=== PATIENT | female | born 1995 | race Two or more races ===

== ENCOUNTER 2024-11-04 14:02 | Emergency (ER) | payer SELFPAY ==
[~2024-11-04] VITALS: Ht 157.5 cm; Wt 60.0 kg
[2024-11-04 14:09] VITALS: O2SAT 100
[2024-11-04 14:54] LABS: BASOPHILS % 0.6 % (0.0-2.0); EOSINOPHILS % 4.0 % (0.0-5.0); HEMATOCRIT. 35.6 % (36.0-48.0); HEMOGLOBIN. 12.1 g/dL (12.0-16.0); LYMPHOCYTES % 28.2 % (20.0-50.0); MEAN PLATELET VOLUME 8.0 fl (7.4-10.4); MONOCYTES % 8.2 % (2.0-8.0); NEUTROPHILS % 59.0 % (40.0-76.0); PLATELET 258 x1000/uL (130-400); RED BLOOD CELL COUNT 3.99 mill/uL (4.2-5.4); RED CELL DISTRIBUTION WIDTH 13.2 % (11.6-14.6)
[2024-11-04] MEDS: ONDANSETRON HCL 4MG/2ML INJ IV ONE (15:03)
[2024-11-04] MEDS: SODIUM CHLORIDE 0.9% 1,000 ML IV ONE (15:06)
[2024-11-04 15:10] LABS: CREATININE 0.6 mg/dL (0.6-1.0); UREA NITROGEN BLOOD < 5 mg/dL (9-23)
[2024-11-04] MEDS: ACETAMINOPHEN 500MG TABLET PO ONE (15:11)
[2024-11-04] MEDS: KETOROLAC 15MG/ML VIAL IV ONE (15:11)
[2024-11-04 15:12] LABS: ASPARTATE AMINOTRANSFERASE 15 IU/L (<34); BILIRUBIN DIRECT 0.2 mg/dL (<=3.0); BILIRUBIN TOTAL 0.5 mg/dL (0.1-1.0)
[2024-11-04 15:13] LABS: PROTEIN TOTAL 6.8 g/dL (6.0-8.3)
[2024-11-04] MEDS: FAMOTIDINE 20MG/2ML VIAL IV ONE (15:15)
[2024-11-04] MEDS: MAGNESIUM/ALUMINUM HYDROXIDE/SIMETHICONE 30ML UDC PO ONE (15:16)
[2024-11-04 15:25] LABS: HCG SCREEN POSITIVE
[2024-11-04 15:25] LABS: CLARITY URINE CLEAR (CLEAR); COLOR URINE YELLOW (YELLOW); GLUCOSE URINE NEGATIVE (NEGATIVE); KETONES URINE TRACE (NEGATIVE); LEUKOCYTE ESTERASE URINE 3+ (NEGATIVE); NITRITE URINE NEGATIVE (NEGATIVE); OCCULT BLOOD URINE 1+ (NEGATIVE); PH URINE 7.0 (4.5-8.0); PROTEIN URINE TRACE (NEGATIVE); SPECIFIC GRAVITY URINE 1.024 (1.005-1.030); UROBILINOGEN URINE 1.0 E.U./dL (0.2-1.0)
[2024-11-04 15:43] LABS: BACTERIA URINE 2+; SQUAMOUS EPITHELIAL CELL URINE FEW /lpf (RARE/1+)
[2024-11-04] MEDS ORDERED: CEPH500C2 MT (17:42)
[2024-11-04 18:58] VITALS: BP 122/58; PULSE 63; RESP 13; TEMP 36.7; O2SAT 100
== END 2024-11-04 19:01 | disposition home or self-care (01) ==
LOC: ER 14:02 → CMPBEDREQ 11-05 10:54
DX: O23.41 Unspecified infection of urinary tract in pregnancy, first trimester (principal); Z32.00 Encounter for pregnancy test, result unknown; Z3A.01 Less than 8 weeks gestation of pregnancy
CPT/HCPCS: 99285; 96374; 96361; 76705; 76801; 80076; 80048; 81003; 84703; 84702; 83690; 85025; 87086; 36415; 76817; J1308; J2405; J7030